=== PATIENT | female | born 1950 | race Caucasian/White ===

== ENCOUNTER 2017-10-27 11:00 | Inpatient (IN) | payer MEDICARE ==
[2017-10-27 12:02] VITALS: BMI 28.7
[2017-11-04] MEDS ORDERED: Sodium Chloride 0.9% 10 ML ONE (06:24)
[2017-11-04] MEDS ORDERED: Thrombin 5000 UNITS/5 ML VIAL ONE (06:24)
[2017-11-04] MEDS ORDERED: Midazolam HCl 2 mg/2 ml Vial ONE ×2 (07:07→09:57)
[2017-11-04] MEDS ORDERED: Fentanyl 100 MCG/2 ML VIAL ONE ×5 (07:07→11:07)
[2017-11-04] MEDS ORDERED: Phenylephrine HCL 10 MG/ML VIAL ONE (07:07)
[2017-11-04] MEDS ORDERED: Famotidine/PF 20 mg/2ml Vial ONE (07:07)
[2017-11-04] MEDS ORDERED: Promethazine HCl 25 MG/ML VIAL SLOW IVP PRN ×2 (09:36)
[2017-11-04] MEDS ORDERED: HYDROmorphone 2 MG/ML VIAL SLOW IVP PRN ×2 (09:36)
[2017-11-04] MEDS ORDERED: Promethazine HCl 25 MG/ML VIAL IM PRN ×3 (09:36→10:15)
[2017-11-04] MEDS ORDERED: Morphine Sulfate 2 MG/ML SYRINGE SLOW IVP PRN ×2 (09:36)
[2017-11-04] MEDS ORDERED: Meperidine HCl/PF 25 MG/ML VIAL SLOW IVP PRN ×2 (09:36)
[2017-11-04] MEDS ORDERED: Ondansetron HCl/PF 4 MG/2 ML Vial IVP PRN ×2 (09:36)
[2017-11-04] MEDS ORDERED: Bisacodyl 10 MG SUPP PR PRN (10:15)
[2017-11-04] MEDS ORDERED: Fleet Enema 133 ML BOT PR PRN (10:15)
[2017-11-04] MEDS ORDERED: traMADol HCl 50 MG TAB PO PRN (10:15)
[2017-11-04] MEDS ORDERED: Acetaminophen 325 MG TAB PO PRN (10:15)
[2017-11-04] MEDS ORDERED: Mag-Al 1200 mg/1200 mg/30 ML UDCUP PO PRN (10:15)
[2017-11-04] MEDS ORDERED: Milk Of Magnesia 30 ML UDCUP PO PRN (10:15)
[2017-11-04] MEDS ORDERED: Acetaminophen/Codeine 30-300mg Tablet PO PRN (10:15)
[2017-11-04] MEDS ORDERED: PROVENTIL INHALER 6.7 G (200 INHALATIONS) INH PRN (10:20)
[2017-11-04] MEDS ORDERED: Loratadine 10 MG TAB PO PRN (10:20)
[2017-11-04] MEDS ORDERED: Nitroglycerin 0.4 MG TAB (25 Tab Bottle) SL PRN (10:30)
[2017-11-04] MEDS ORDERED: Polyethylene Glycol 3350 17 GM Packet PO SCH (10:30)
[2017-11-04] MEDS: tiZANidine HCl 4 MG TAB PO PRN ×2 (12:48→19:28)
[2017-11-04] MEDS: Morphine 4 MG/ML VIAL SLOW IVP PRN ×2 (12:59→21:59)
--- NOTE | 2017-11-04 13:07 | OP ---
OR: 11 WOUND TYPE: Type 1 wound SURGEON: Yovanny Escobedo M.D. BUSINESS ACCOUNT SPECIALIST: Bart Otoole PA-C. 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 PROCEDURES PERFORMED: 1. C4-C5, C5-C6, C6-C7 anterior cervical diskectomies and decompression of the spinal cord and nerve roots. 2. Placement of interbody spacers for arthrodesis, packed with local bone autograft and allograft, C 4-C5, C5-C6, C6-C7 for arthrodesis. 3. Use of operative microscope for microdissection. 4. Anterior cervical plate and screw fixation at C4, C5, C6, and C7. DESCRIPTION OF PROCEDURE: After informed consent was obtained from the patient, the patient brought to OR 11. Proper patient pause and identification was carried out. He was placed under excellent ge neral endotracheal anesthesia and positioned supine on the operating room table. All appropriate poi nts were padded. We identified a right anterior oblique martin that allow for approach C4, C5, C6, and C7 segments. This region was sterilely cleansed, prepared, and draped. Proper patient pause and id entification was carried out. The wound was then opened with a combination of sharp, monopolar and b noelle dissection, and the longus colli muscles and prevertebral space were exposed along with the C4, C5, C6, C7 segments. This region was sterilely cleansed, prepared, and draped. Localization film wa s then carried out and retractors were brought in the field. The microscope was also brought in the field and distraction at C4-C5 then occurred. A diskectomy was performed at C4-C5 using the operativ e microscope for microdissection with satisfactory decompression of spinal cord and nerve roots. End plates were prepared and interbody spacer. Appropriate dimension was placed with local bone autograf t and allograft, C5-C6 distraction then occurred and diskectomy was performed at that level as well w ith decompression of spinal cord and nerve roots. An interbody spacer packed at that region as well. We then turned our attention to the C6-C7 segment and distraction at that segment occurred and disk ectomy performed there for decompression of spinal cord and nerve roots. Again, the endplates were p repared. An interbody spacer of appropriate dimension was placed at C6-C7 with satisfied decompressi on C4-C5, C5-C6, C6-C7 in our construct. The microscope was removed and plate was secured to the spi ne with screws placed and final tightening occurred, satisfied with both gross and fluoroscopic visua lization. Copious irrigation occurred. Hemostasis was maximized throughout. The wound was then daina sed in anatomic layers over a drain. The patient then emerged from anesthesia.
[2017-11-04] MEDS: Baclofen 10 MG TAB PO SCH ×4 (16:08→21:54)
[2017-11-04] MEDS: Sodium Chloride 0.9% 1,000 ML IV SCH ×2 (16:10→22:04)
[2017-11-04] MEDS: HYDROcodone/Acetaminophen 7.5/325 mg Tablet PO PRN ×2 (16:14→22:53)
[2017-11-04] MEDS ORDERED: PROPOFOL 200 MG/20 ML VIAL ONE (16:58)
[2017-11-04] MEDS ORDERED: Lidocaine 1% PF 5 ML VIAL ONE (16:58)
[2017-11-04] MEDS ORDERED: Glycopyrrolate 0.2 MG/ML 5 ML SYRINGE ONE (16:58)
[2017-11-04] MEDS ORDERED: PHENYLEPHRINE-NS 100 MCG/ML 10 ML SYRINGE ONE (16:58)
[2017-11-04] MEDS ORDERED: Dexamethasone 20 MG/5 ML VIAL ONE ×2 (16:58)
[2017-11-04] MEDS ORDERED: NPH, Human Insulin Isophane 300 UNIT/3 ML VIAL SC SCH (21:00)
[2017-11-04] MEDS: Carvedilol 6.25 MG TAB PO SCH (21:54)
[2017-11-04] MEDS: INSULIN LISPRO SQ SCH ×4 (22:39→22:47)
[2017-11-04] MEDS ORDERED: Insulin Lispro [Humalog Kwikpen U-100] SC SCH (22:45)
[2017-11-04] MEDS ORDERED: HumaLOG 300 UNITS/3 ML VIAL SC SCH (23:00)
[2017-11-05] MEDS: HYDROcodone/Acetaminophen 7.5/325 mg Tablet PO PRN (04:21)
[2017-11-05] MEDS: tiZANidine HCl 4 MG TAB PO PRN (04:24)
[2017-11-05] MEDS ORDERED: Canagliflozin [Invokana] 300 MG PO SCH (07:30)
[2017-11-05] MEDS ORDERED: Vancomycin HCl 1 GM in Premix Bag 1 BAG IVPB SCH (08:00)
[2017-11-05 08:07] VITALS: BP 124/74; TEMP 98
[2017-11-05] MEDS: Carvedilol 6.25 MG TAB PO SCH (08:16)
[2017-11-05] MEDS: Baclofen 10 MG TAB PO SCH ×2 (08:17)
[2017-11-05] MEDS: Morphine 4 MG/ML VIAL SLOW IVP PRN (08:21)
[2017-11-05] MEDS ORDERED: NPH, Human Insulin Isophane 300 UNIT/3 ML VIAL SC SCH ×2 (09:00→21:00)
[2017-11-05] MEDS ORDERED: FLUoxetine HCl 20 MG CAP PO SCH (09:00)
[2017-11-05] MEDS: HumaLOG 300 UNITS/3 ML VIAL SC PRN ×2 (09:15→10:39)
--- NOTE | 2017-11-05 19:38 | PRG ---
DATE OF SERVICE: 11/05/2017 Ms. Olea is postoperative day 1 multilevel anterior cervical diskectomy and fusion. She states sh e has no arm pain as expected surgical neck or interscapular pain. She is doing very well although w ith good strength. Her drain output has been 30 mL overnight. We will remove the drain. Her wound is healing well. Her strength is good. We will plan for dismissal later today. We have arranged fo r postoperative follow up.
== END 2017-11-05 11:00 | disposition home or self-care (01) | DRG 472 ==
LOC: SURG A 11-04 05:33 → SURG B 11-04 12:29
PROVIDERS: ADMIT Surgery; ATTEND Surgery
PROC: 0RG2070 Fusion of 2 or more Cervical Vertebral Joints with Autologous Tissue Substitute, Anterior Approach, Anterior Column, Open Approach (ICD-10-PCS; principal; 2017-11-04)
PROC: 00NW0ZZ Release Cervical Spinal Cord, Open Approach (ICD-10-PCS; 2017-11-04)
PROC: 0RB30ZZ Excision of Cervical Vertebral Disc, Open Approach (ICD-10-PCS; 2017-11-04)
PROC: 01N10ZZ Release Cervical Nerve, Open Approach (ICD-10-PCS; 2017-11-04)
DX: M48.02 Spinal stenosis, cervical region (principal); G95.9 Disease of spinal cord, unspecified; J44.9 Chronic obstructive pulmonary disease, unspecified; M54.12 Radiculopathy, cervical region; E11.9 Type 2 diabetes mellitus without complications; I10 Essential (primary) hypertension; Z88.0 Allergy status to penicillin; Z88.8 Allergy status to other drugs, medicaments and biological substances; Z79.4 Long term (current) use of insulin; Z79.899 Other long term (current) drug therapy
CPT/HCPCS: 36416; 76001; A4216; C1713; C1768; C1776; J0131; J1100; J1815; J2001; J2250; J2270; J2370; J2704; J3010; J3370; J3490; S0028

== ENCOUNTER 2017-10-27 11:16 | Outpatient (CLI) | payer MEDICARE ==
[2017-10-27 13:02] LABS: Hemoglobin 14.1 g/dL (12.0-16.0); Mean Corpuscular HGB CONC 33.2 g/dL (32.0-36.0); Mean Corpuscular Hemoglobin 31.7 pg (27.0-31.0); Mean Corpuscular Volume 95.6 fl (81.0-99.0); Mean Platelet Volume 8.1 fL (7.4-10.4); Platelet Count 265 thou/uL (130-400); RBC Distribution Width 11.9 % (11.5-14.5); Red Blood Cell (RBC) Count 4.44 mill/uL (4.20-5.40); White Blood Cell (WBC) Count 5.8 thou/uL (4.8-10.8)
[2017-10-27 13:14] LABS: PTT 32.5 SEC (22.9-36.1); Prothrombin Time 13.8 SEC (12.0-14.7)
[2017-10-27 13:15] LABS: Anion Gap 12 mmol/L (10-20); BUN (Urea Nitrogen) 20 mg/dL (9.8-20.1); Calc. Creatinine Clearance 0 mL/min (70-130); Calcium 9.3 mg/dL (7.8-10.44); Carbon Dioxide 27 mmol/L (23-31); Chloride 106 mmol/L (98-107); Estimated GFR-MDRD 45; Glucose 157 mg/dL (80-115); Potassium 4.5 mmol/L (3.5-5.1); Sodium 140 mmol/L (136-145)
--- NOTE | 2017-10-28 06:22 | EKG ---
Test Reason : Blood Pressure : / mmHG Vent. Rate : 065 BPM Atrial Rate : 065 BPM P-R Int : 140 ms QRS Dur : 068 ms QT Int : 430 ms P-R-T Axes : 061 -14 027 degrees QTc Int : 447 ms Normal sinus rhythm Normal ECG When compared with ECG of 23-APR-2011 02:23, Premature supraventricular complexes are no longer Present Vent. rate has decreased BY 35 BPM Confirmed by EUGENIO MENCHACA ([id number]) on 10/28/2017 5:56:06 AM Referred By: LOI Confirmed By:EUGENIO MENCHACA
== END 2017-10-27 11:17 | disposition home or self-care (01) ==
LOC: LABBT 11:16
PROVIDERS: ATTEND Surgery
DX: Z01.818 Encounter for other preprocedural examination (principal); M54.12 Radiculopathy, cervical region; M48.02 Spinal stenosis, cervical region
CPT/HCPCS: 80048; 85027; 85610; 85730; 87081; 93005; 93010

== ENCOUNTER 2017-12-22 09:22 | Outpatient (CLI) | payer MEDICARE ==
--- NOTE | 2017-12-22 11:40 | RAD ---
CERVICAL SPINE SERIES 3 VIEWS: Date: 12/22/17 HISTORY: Follow-up surgery. FINDINGS: Patient has undergone anterior cervical fusion with placement of plate and screws which extend from C 4 to C7. Markers of disc implants are within the confines of the disc levels. Disc narrowing is seen at C2-3 and C3-4. IMPRESSION: Postop changes of the spine. POS: VERNA
== END 2017-12-22 09:23 | disposition home or self-care (01) ==
LOC: TBSIIMAG 09:22
PROVIDERS: ATTEND Surgery
DX: M54.2 Cervicalgia (principal); Z98.890 Other specified postprocedural states
CPT/HCPCS: 72040

== ENCOUNTER 2018-11-27 13:37 | Emergency (ER) | payer MEDICARE ==
[2018-11-27 14:03] LABS: #Basophils 0.1 thou/uL (0.0-0.2); #Eosinphils 0.1 thou/uL (0.0-0.7); #Lymphocytes 1.7 thou/uL (1.20-3.40); #Monocytes 0.7 thou/uL (0.11-0.59); #Neutrophils 4.2 thou/uL (1.40-6.50); %Basophils 1.2 % (0.0-1.0); %Eosinophils 1.5 % (0.0-10.0); %Lymphocytes 25.3 % (21.0-51.0); %Monocytes 10.4 % (0.0-10.0); %Neutrophils 61.6 % (42.0-75.0); Hemoglobin 12.8 g/dL (12.0-16.0); Mean Corpuscular HGB CONC 34.2 g/dL (32.0-36.0); Mean Corpuscular Hemoglobin 32.6 pg (27.0-31.0); Mean Corpuscular Volume 95.2 fL (78.0-98.0); Mean Platelet Volume 8.1 fL (7.4-10.4); Platelet Count 258 thou/uL (130-400); RBC Distribution Width 12.2 % (11.5-14.5); Red Blood Cell (RBC) Count 3.94 mill/uL (4.20-5.40); White Blood Cell (WBC) Count 6.8 thou/uL (4.8-10.8)
[2018-11-27 14:07] LABS: Bilirubin Negative (Negative); Blood, Urine Negative (Negative); Clarity CLEAR (Clear); Glucose, Urine (Dipstick) >=1000 mg/dL (Negative); Leukocyte Trace (Negative); Nitrite Negative (Negative); Protein, Urine (Dipstick) Negative (Neg-Trace); Specific Gravity, Urine 1.029 (1.002-1.036); Urobilinogen 0.2 mg/dL (0.2-1.0)
[2018-11-27 14:09] LABS: Bacteria/HPF None Seen HPF (None Seen); Hyaline Casts/LPF 0-3 HYALINE CAST LPF (0-3 Hyaline); Pathc Cast-AUWi Flag 0.13 (0-2.49); RBC/HPF 0-3 HPF (0-3); WBC/HPF 21-50 HPF (0-3); Yeast-AUWi Flag 16.1 (0-25.0)
[2018-11-27 14:27] LABS: ALT (SGPT) 11 U/L (8-55); AST (SGOT) 11 U/L (5-34); Albumin 4.1 g/dL (3.4-4.8); Alkaline Phosphatase 88 U/L (40-150); Anion Gap 12 mmol/L (10-20); BUN (Urea Nitrogen) 15 mg/dL (9.8-20.1); Bilirubin, Total 0.4 mg/dL (0.2-1.2); Calc. Creatinine Clearance 0 mL/min (70-130); Calcium 9.4 mg/dL (7.8-10.44); Carbon Dioxide 25 mmol/L (23-31); Chloride 102 mmol/L (98-107); Estimated GFR-MDRD 44; Globulin 2.7 g/dL (2.4-3.5); Glucose 206 mg/dL (80-115); Lipase 11 U/L (8-78); Potassium 4.2 mmol/L (3.5-5.1); Protein, Total 6.8 g/dL (6.0-8.3); Sodium 135 mmol/L (136-145)
[2018-11-27] MEDS ORDERED: Ondansetron PF 4 MG/2 ML Vial ONE (14:42)
[2018-11-27] MEDS ORDERED: Morphine 4 MG/ML VIAL ONE (14:42)
--- NOTE | 2018-11-27 14:55 | CT ---
CT OF THE ABDOMEN AND PELVIS WITHOUT IV CONTRAST INDICATION: Lower abdominal pain COMPARISON: None FINDINGS: The lack of IV contrast limits evaluation of the solid organs of the abdomen and pelvis. ABDOMEN: Lung bases: Subsegmental volume loss. Moderate size hiatal hernia Liver: Mild pneumobilia Gallbladder: Not visualized, presumed to be surgically absent. Pancreas: Diffuse fatty atrophy Adrenal glands: Normal. Spleen: Normal. Kidneys: Normal. Retroperitoneum of the upper abdomen: There are moderate vascular calcifications seen involving the v isualized vasculature. No pathologically enlarged lymph nodes are evident. Additional findings: None. Pelvis: Small and large bowel: Normal Bladder: Normal. Rectal and perirectal soft tissues:Normal. Reproductive structures: Surgically absent Free fluid in pelvis: No free fluid is evident. Lymphadenopathy pelvis: No lymphadenopathy is evident. Osseous structures: There is scattered degenerative and osteoarthritic change present. There is posts urgical change involving the lower lumbar spine. No acute fracture or subluxation demonstrated. IMPRESSION: 1. No acute abnormality.
== END 2018-11-27 15:36 | disposition home or self-care (01) ==
LOC: ERS 13:37
DX: N12 Tubulo-interstitial nephritis, not specified as acute or chronic (principal); E11.9 Type 2 diabetes mellitus without complications; I10 Essential (primary) hypertension; F32.9 Major depressive disorder, single episode, unspecified; F41.9 Anxiety disorder, unspecified; J45.909 Unspecified asthma, uncomplicated; K86.1 Other chronic pancreatitis; Z79.4 Long term (current) use of insulin; Z79.899 Other long term (current) drug therapy
CPT/HCPCS: 36415; 74176; 80053; 81003; 81015; 83690; 85025; 87086; 93005; 94760; 96374; 96375; J2270; J2405

== ENCOUNTER 2019-04-19 10:30 | Outpatient (CLI) | payer MEDICARE ==
--- NOTE | 2019-04-19 13:20 | RAD ---
CERVICAL SPINE RADIOGRAPHS EIGHT VIEWS: 04/19/2019 PROVIDED CLINICAL HISTORY: Radiculopathy. COMPARISON: 12/22/2017 FINDINGS: Postoperative changes of ACDF involving C4 through C7 are redemonstrated. No evidence for hardware lo osening or migration. Cervical alignment appears normal. There is no evidence for abnormal translatio nal motion with flexion and extension. No gross bony foraminal narrowing is evident. The odontoid vie w is suboptimal. Given this limitation there is no evidence for fracture. Disk degenerative changes a re seen at C3-C4. No prevertebral soft tissue swelling apparent. The visualized lung apices appear cl ear. IMPRESSION: Postoperative and degenerative change involving the cervical spine, as described. POS: TPC
--- NOTE | 2019-04-19 14:08 | MRI ---
MRI CERVICAL SPINE WITHOUT CONTRAST: INDICATIONS: Cervical radiculopathy. Post cervical spine surgery. COMPARISON: MRI cervical spine from 2015. FINDINGS: Postoperative changes have occurred since the prior exam. Motion artifact degrades all sequences. Anterior plate and screws noted transfixing the C4, C5, C6 and C7 levels. Interbody implants at these levels. Vertebral bodies maintain height and alignment. Vertebral body signal is maintained. C2-C3: Asymmetric spondylosis on the right and dense anterior thecal sac on the right mildly encroach ing into the right foramina. C3-C4: Mild disk bulge and spondylosis efface the anterior subarachnoid space, slightly more pronounc ed paracentrally to the right. Mild right foraminal encroachment due to uncinate hypertrophy and spon dylosis. No cord impingement. C4-C5: Posterior spondylosis effaces the anterior subarachnoid space and abuts the anterior cord. Jonny ateral foraminal stenosis due to hypertrophic change. C5-C6: Mild posterior spondylosis without cord impingement. Bilateral foraminal stenosis due to hypertrophic change. C6-C7: Asymmetric spondylitic change is seen centrally and to the right, abutting the anterior cord. Bilateral foraminal narrowing. C7: No evidence of significant spondylosis. Anterior subarachnoid space is preserved. Cord signal appears normal, although T2 sequences are severely degraded due to artifact. IMPRESSION: Postoperative changes with anterior fusion changes from C4 through C7. Spondylytic changes impinge on the cord at C4-C5 and C6-C7. CT may be of benefit, which will reduce motion artifact and better defi ne the osseous changes. POS: OFF
== END 2019-04-19 10:31 | disposition home or self-care (01) ==
LOC: SCSMRI 10:30
PROVIDERS: ATTEND Anesthesiology Pain Medicine
DX: M47.22 Other spondylosis with radiculopathy, cervical region (principal); Z98.890 Other specified postprocedural states; Z98.1 Arthrodesis status
CPT/HCPCS: 72052; 72141

== ENCOUNTER 2019-05-11 08:29 | Outpatient (CLI) | payer MEDICARE ==
--- NOTE | 2019-05-11 12:57 | NM ---
NUCLEAR MEDICINE BRAIN IMAGING: HISTORY: Tremor, unspecified TECHNIQUE: A Betsy scan with axial tomographic images of the brain was obtained 3 hours following the intravenous administration of 5mCi I-123 Ioflupane. The patient was not pretreated with 130 mg of oral potassium iodide 1 hour prior to the injection due to iodine allergy. FINDINGS: There is normal symmetric uptake in the striata bilaterally, demonstrating symmetric, crescent-shaped focal regions of activity mirrored about the median plane. IMPRESSION: Normal exam.
== END 2019-05-11 08:30 | disposition home or self-care (01) ==
LOC: NM 08:29
PROVIDERS: ATTEND Nurse Practitioner Acute Care
DX: R25.1 Tremor, unspecified (principal)
CPT/HCPCS: 78607; A9584

== ENCOUNTER 2019-05-15 09:21 | Emergency (ER) | payer MEDICARE ==
[2019-05-15] MEDS ORDERED: Morphine 4 MG/ML VIAL ONE (10:05)
[2019-05-15] MEDS ORDERED: Ketorolac Tromethamine 30 MG/ML VIAL ONE (10:05)
--- NOTE | 2019-05-15 10:53 | RAD ---
3 views right wrist: 05/15/2019 COMPARISON: None HISTORY: Fall, trauma, pain FINDINGS: No fracture or dislocation. No radiopaque foreign body or subcutaneous gas. If symptoms per sist, follow-up imaging in 7-10 days with dedicated scaphoid views are advised. IMPRESSION: No acute findings.
--- NOTE | 2019-05-15 10:54 | RAD ---
Frontal and lateral imaging of the right forearm: 05/15/2019 COMPARISON: None HISTORY: Fall, trauma, pain FINDINGS: No fracture or dislocation. No radiopaque foreign body or subcutaneous gas. IMPRESSION: No acute findings.
--- NOTE | 2019-05-15 10:55 | RAD ---
Right elbow 4 views: 05/15/2019 COMPARISON: None HISTORY: Fall, trauma, pain FINDINGS: No fracture or dislocation. No radiopaque foreign body or subcutaneous gas. No elbow joint effusion is appreciated on the lateral examination. IMPRESSION: No acute findings.
--- NOTE | 2019-05-15 10:58 | RAD ---
Exam:2 views right humerus HISTORY: Fall. Pain. Trauma. COMPARISON: None FINDINGS: Comminuted proximal humerus fracture with intra-articular extension. No additional fracture s. IMPRESSION: Proximal humerus fracture.
--- NOTE | 2019-05-15 10:58 | RAD ---
Exam:Right shoulder 3 view HISTORY: Trauma. Fall. Pain COMPARISON: None FINDINGS: Limited proximal humerus fracture. There may be intra-articular extension. Visualized ribs are unremarkable. Cervical fusion hardware is noted. IMPRESSION: Comminuted proximal humerus fracture with intra-articular extension.
== END 2019-05-15 12:10 | disposition home or self-care (01) ==
LOC: ERS 09:21
DX: S42.201A Unspecified fracture of upper end of right humerus, initial encounter for closed fracture (principal); I10 Essential (primary) hypertension; E11.9 Type 2 diabetes mellitus without complications; J45.909 Unspecified asthma, uncomplicated; F41.9 Anxiety disorder, unspecified; F32.9 Major depressive disorder, single episode, unspecified; Z79.899 Other long term (current) drug therapy; Z79.4 Long term (current) use of insulin; Z79.51 Long term (current) use of inhaled steroids; Z79.2 Long term (current) use of antibiotics; W18.30XA Fall on same level, unspecified, initial encounter
CPT/HCPCS: 96372; J1885; J2270

== ENCOUNTER 2019-05-16 12:21 | Observation (INO) | payer MEDICARE ==
[2019-05-16] MEDS ORDERED: Fentanyl 100 MCG/2 ML VIAL ONE ×2 (13:28→15:14)
[2019-05-16] MEDS ORDERED: Midazolam HCl 2 mg/2 ml Vial ONE (13:28)
[2019-05-16 13:38] LABS: #Basophils 0.1 thou/uL (0.0-0.2); #Eosinphils 0.1 thou/uL (0.0-0.7); #Lymphocytes 1.1 thou/uL (1.20-3.40); #Monocytes 0.9 thou/uL (0.11-0.59); #Neutrophils 4.2 thou/uL (1.40-6.50); %Basophils 1.3 % (0.0-1.0); %Eosinophils 1.4 % (0.0-10.0); %Lymphocytes 17.5 % (21.0-51.0); %Monocytes 13.7 % (0.0-10.0); %Neutrophils 66.2 % (42.0-75.0); Hemoglobin 10.8 g/dL (12.0-16.0); Mean Corpuscular HGB CONC 33.4 g/dL (32.0-36.0); Mean Corpuscular Hemoglobin 32.5 pg (27.0-31.0); Mean Corpuscular Volume 97.3 fL (78.0-98.0); Mean Platelet Volume 8.7 fL (7.4-10.4); Platelet Count 233 thou/uL (130-400); RBC Distribution Width 12.4 % (11.5-14.5); Red Blood Cell (RBC) Count 3.32 mill/uL (4.20-5.40); White Blood Cell (WBC) Count 6.4 thou/uL (4.8-10.8)
[2019-05-16] MEDS ORDERED: Clindamycin/D5W 900 mg/50 ml Premix Bag ONE (13:54)
[2019-05-16 14:14] LABS: Anion Gap 11 mmol/L (10-20); BUN (Urea Nitrogen) 18 mg/dL (9.8-20.1); Calc. Creatinine Clearance 0 mL/min (70-130); Calcium 9.1 mg/dL (7.8-10.44); Carbon Dioxide 28 mmol/L (23-31); Chloride 105 mmol/L (98-107); Estimated GFR-MDRD 42; Glucose 128 mg/dL (83-110); Potassium 3.8 mmol/L (3.5-5.1); Sodium 140 mmol/L (136-145)
[2019-05-16] MEDS ORDERED: Loratadine 10 MG TAB PO PRN (15:50)
[2019-05-16] MEDS ORDERED: [UNRECOGNIZED DRUG - OTHER] EA EYE PRN (15:50)
[2019-05-16] MEDS ORDERED: traMADol HCl 50 MG TAB PO PRN (15:59)
[2019-05-16] MEDS ORDERED: HYDROcodone/Acetaminophen 5/325 mg Tablet PO PRN (15:59)
[2019-05-16] MEDS ORDERED: Fentanyl 100 MCG/2 ML VIAL SLOW IVP PRN (15:59)
[2019-05-16] MEDS ORDERED: Ondansetron PF 4 MG/2 ML Vial IV PRN (15:59)
[2019-05-16] MEDS ORDERED: Communication Order-Pharmacy FS SCH (16:00)
[2019-05-16] MEDS ORDERED: Nitroglycerin 0.4 MG TAB (25 Tab Bottle) SL SCH (16:00)
[2019-05-16] MEDS ORDERED: Polyethylene Glycol 3350 17 GM Packet PO SCH (16:00)
[2019-05-16] MEDS ORDERED: Promethazine HCl 25 MG/ML VIAL IM PRN (17:50)
[2019-05-16] MEDS ORDERED: Promethazine HCl 25 MG/ML VIAL SLOW IVP PRN (17:50)
[2019-05-16] MEDS ORDERED: Morphine Sulfate 2 MG/ML SYRINGE SLOW IVP PRN (17:50)
[2019-05-16] MEDS ORDERED: Ondansetron HCl/PF 4 MG/2 ML Vial IVP PRN (17:50)
[2019-05-16] MEDS ORDERED: HYDROmorphone 2 MG/ML VIAL SLOW IVP PRN (17:50)
[2019-05-16] MEDS ORDERED: PACU-Morphine 4MG/ML VIAL SLOW IVP PRN (17:50)
[2019-05-16] MEDS ORDERED: Bupivacaine HCl 0.5%/Epinephrine 1:200,000/PF 30 ml Vial ONE (19:15)
--- NOTE | 2019-05-16 19:15 | RAD ---
Right humerus 2 views intraoperative fluoroscopy HISTORY: Fracture. FINDINGS: Intraoperative fluoroscopy was provided for internal fixation is performed by Dr. Vargas . Spot fluoroscopic images show compression plate and multiple screws transfixing the humeral neck, in anatomic alignment. Fluoroscopy time 18 seconds.
[2019-05-16] MEDS ORDERED: Lidocaine 1% PF 5 ML VIAL ONE (20:30)
[2019-05-16] MEDS ORDERED: Rocuronium Bromide 10 MG/ML (10ML VIAL) ONE (20:30)
[2019-05-16] MEDS ORDERED: Ondansetron PF 4 MG/2 ML Vial ONE (20:30)
[2019-05-16] MEDS ORDERED: Dexamethasone 20 MG/5 ML VIAL ONE (20:30)
[2019-05-16] MEDS ORDERED: PROPOFOL 200 MG/20 ML VIAL ONE (20:30)
[2019-05-16] MEDS ORDERED: Glycopyrrolate 0.2 MG/ML 5 ML SYRINGE ONE (20:30)
[2019-05-16] MEDS ORDERED: ePHEDrine 50 MG/ML VIAL ONE (20:30)
--- NOTE | 2019-05-16 21:44 | OP ---
DATE OF PROCEDURE: 05/16/2019 OPERATION: Open reduction and internal fixation of right proximal humerus fracture. PREOPERATIVE DIAGNOSIS: Displaced and comminuted right proximal humerus fracture. POSTOPERATIVE DIAGNOSES: Displaced and comminuted right proximal humerus fracture. COMPLICATIONS: None. ESTIMATED BLOOD LOSS: 100 mL. HOSPICE NURSE: Disha Romero PA-C. IMPLANTS: Synthes proximal humeral plate with multiple locking and nonlocking screws. INDICATIONS: Ms. Olea is a 69-year-old female who has fallen and fractured her proximal humerus. She was indicated for open reduction and internal fixation to restore anatomic alignment and promote healing. Risks have been reviewed in detail. Risks to include, nonunion, malunion, hardware failure, need for further surgery, chronic pain, and others. DESCRIPTION OF PROCEDURE: Ms. Olea was identified in the preoperative holding area. Her correct extremity was marked. She was carried to the operating room. She was positioned in a gentle beach chair. We performed prepping and draping of the right upper extremity. At this point, we performed a deltopectoral approach to the proximal humerus. We dissected down through the subcutaneous tissues to the fascia. The deltopectoral fascia was opened. We developed the deltopectoral interval. We then identified the deeper tissues. We cleared some bursal and hematoma tissue. We exposed the underlying fracture of the proximal humerus. At this point, we cleared the bony edges. We then placed sutures in the posterior aspect of the tuberosity. We were able to reduce the tuberosity back to the lesser tuberosity. We sutured this together. We then reduced the humeral head using intraoperative x-ray and K-wire fixation. We then placed a proximal humeral plate along the lateral cortex. We placed K-wires through this as well. We then placed a distal screw followed by multiple proximal screws. All the proximal screws were locking screws. We took x-ray images confirming placement. There were no complications. We filled all remaining screw holes distally. We then thoroughly irrigated with copious lavage. At this point, we closed appropriately in layers. The patient was then taken to the recovery room in good condition without complication. Job ID: [id number]
[2019-05-16] MEDS: Ketorolac Tromethamine 30 MG/ML VIAL IVP SCH ×2 (22:20→23:10)
[2019-05-16] MEDS: Carvedilol 6.25 MG TAB PO SCH (22:33)
[2019-05-16] MEDS: Baclofen 10 MG TAB PO SCH (22:33)
[2019-05-16] MEDS: Morphine ER 30 MG TAB PO SCH (22:33)
[2019-05-16 23:42] VITALS: BMI 29.0
[2019-05-17] MEDS ORDERED: Vancomycin HCl 1 GM in Premix Bag 1 BAG IVPB SCH (03:00)
[2019-05-17 05:16] LABS: #Lymphocytes 0.4 thou/uL (1.20-3.40); #Monocytes 0.8 thou/uL (0.11-0.59); #Neutrophils 6.4 thou/uL (1.40-6.50); %Basophils 0.3 % (0.0-1.0); %Lymphocytes 5.6 % (21.0-51.0); %Monocytes 10.1 % (0.0-10.0); %Neutrophils 83.9 % (42.0-75.0); Hemoglobin 9.1 g/dL (12.0-16.0); Mean Corpuscular HGB CONC 33.8 g/dL (32.0-36.0); Mean Corpuscular Hemoglobin 32.9 pg (27.0-31.0); Mean Corpuscular Volume 97.3 fL (78.0-98.0); Mean Platelet Volume 8.2 fL (7.4-10.4); Platelet Count 192 thou/uL (130-400); RBC Distribution Width 12.2 % (11.5-14.5); Red Blood Cell (RBC) Count 2.77 mill/uL (4.20-5.40); White Blood Cell (WBC) Count 7.6 thou/uL (4.8-10.8)
[2019-05-17] MEDS: Ketorolac Tromethamine 30 MG/ML VIAL IVP SCH (05:33)
[2019-05-17] MEDS ORDERED: PROVENTIL INHALER 6.7 G (200 INHALATIONS) INH SCH (07:00)
[2019-05-17] MEDS ORDERED: Non-Formulary Item 1 EACH (Canagliflozin [Invokana] 300 MG) PO SCH (09:00)
[2019-05-17] MEDS ORDERED: FLUoxetine HCl 20 MG CAP PO SCH (09:00)
[2019-05-17] MEDS: Morphine ER 30 MG TAB PO SCH (09:25)
[2019-05-17] MEDS: Carvedilol 6.25 MG TAB PO SCH ×3 (09:26→09:33)
[2019-05-17] MEDS: Baclofen 10 MG TAB PO SCH (09:26)
[2019-05-17] MEDS ORDERED: Dextrose 50% Abboject 50 ML SYRINGE SLOW IVP PRN (10:39)
[2019-05-17] MEDS ORDERED: Dextrose 5% in Water 1,000 ML IV PRN (10:39)
[2019-05-17] MEDS ORDERED: HumaLOG 300 UNITS/3 ML VIAL SC PRN ×2 (10:39)
[2019-05-17 11:59] VITALS: BP 111/58; TEMP 98.3
--- NOTE | 2019-05-18 12:50 | DIS ---
DATE OF ADMISSION: 05/16/2019 DATE OF DISCHARGE: 05/17/2019 This is Disha Romero PA-C dictating a report for Ned Vargas MD. REASON FOR ADMISSION: Right proximal humerus fracture. PREOPERATIVE DIAGNOSIS: Displaced and comminuted right proximal humerus fracture. POSTOPERATIVE DIAGNOSIS: Displaced and comminuted right proximal humerus fracture. PROCEDURE PERFORMED: Open reduction and internal fixation of right proximal humerus fracture. BRIEF HOSPITAL COURSE: Ms. Olea is a 69-year-old female who fell and fractured her proximal humerus. She presented to our clinic earlier in the day of admission and proceeded to the hospital for surgery. She was indicated for this procedure in order to restore anatomic alignment and promote healing. She did well in the surgical suite and postoperatively she was admitted to [place] [id number] surgical floor, where she worked with Occupational Therapy, received postoperative antibiotics and analgesics. Postoperative day one, she was feeling well and no complications were incurred and she was discharged home with family. DISCHARGE DISPOSITION: Home. DISCHARGE CONDITION: Stable. DISCHARGE INSTRUCTIONS: The patient will keep her surgical wound clean, dry, and intact until followup in our office. She will stay in a sling while she is out of bed. DISCHARGE MEDICATIONS: See MAR. Job ID: [id number]
== END 2019-05-17 11:55 | disposition home or self-care (01) ==
LOC: SDC 12:21 → SURG A 15:59
PROVIDERS: ADMIT Orthopaedic Surgery; ATTEND Orthopaedic Surgery
PROC: 0PSC04Z Reposition Right Humeral Head with Internal Fixation Device, Open Approach (ICD-10-PCS; principal; 2019-05-16)
PROC: 3E0T3BZ Introduction of Anesthetic Agent into Peripheral Nerves and Plexi, Percutaneous Approach (ICD-10-PCS; 2019-05-16)
DX: S42.201A Unspecified fracture of upper end of right humerus, initial encounter for closed fracture (principal); G89.18 Other acute postprocedural pain; Z79.2 Long term (current) use of antibiotics; Z79.4 Long term (current) use of insulin; Z79.891 Long term (current) use of opiate analgesic; Z79.899 Other long term (current) drug therapy; Z88.0 Allergy status to penicillin; Z88.1 Allergy status to other antibiotic agents; Z88.8 Allergy status to other drugs, medicaments and biological substances; Z91.041 Radiographic dye allergy status; Z91.048 Other nonmedicinal substance allergy status; W19.XXXA Unspecified fall, initial encounter
CPT/HCPCS: 23615; 64415; 73060; 76000; 80048; 82962; 85025 ×2; 94640; 96365; 96366; 96375; 96376; C1713 ×3; G0378 ×2; 36415; 36416; J0670; J1100; J1885; J2001; J2250; J2405; J2704; J3010; J3370; J3490

== ENCOUNTER 2019-12-28 09:06 | Outpatient (CLI) | payer MEDICARE ==
--- NOTE | 2019-12-28 09:25 | RAD ---
THREE VIEWS CERVICAL SPINE: COMPARISON: 12/22/2017. FINDINGS: On the AP projection, redemonstration of a cervical fusion plate from C4 through C7. No perihardware lucency. Plate position is unchanged. Disc prosthesis at C4-C5, C5-C6 and C6-C7. On the AP projection facet arthropathy is identified. There is no prevertebral soft tissue swelling. Predental space is normal. No fracture. IMPRESSION: Stable and uncomplicated cervical fusion. Transcribed Date/Time: 12/28/2019 10:44 AM
== END 2019-12-28 09:07 | disposition home or self-care (01) ==
LOC: BICRAD 09:06
PROVIDERS: ATTEND Surgery
DX: M54.2 Cervicalgia (principal); Z98.1 Arthrodesis status
CPT/HCPCS: 72040

== ENCOUNTER 2021-01-18 09:48 | Emergency (ER) | payer OTHER, MEDICARE ==
[2021-01-18] MEDS ORDERED: Ketorolac Tromethamine 30 MG/ML VIAL ONE (10:56)
== END 2021-01-18 12:36 | disposition home or self-care (01) ==
LOC: ERS 09:48
DX: S52.615A Nondisplaced fracture of left ulna styloid process, initial encounter for closed fracture (principal); S52.572A Other intraarticular fracture of lower end of left radius, initial encounter for closed fracture; E11.9 Type 2 diabetes mellitus without complications; K86.1 Other chronic pancreatitis; J45.909 Unspecified asthma, uncomplicated; I10 Essential (primary) hypertension; Z79.4 Long term (current) use of insulin; Z79.899 Other long term (current) drug therapy; W01.0XXA Fall on same level from slipping, tripping and stumbling without subsequent striking against object, initial encounter
CPT/HCPCS: 29125; 96372; J1885

== ENCOUNTER 2021-04-08 07:12 | Outpatient (CLI) | payer MEDICARE | END 2021-04-08 07:13 | disposition home or self-care (01) | LOC: BICMRI 07:12 | PROVIDERS: ATTEND Anesthesiology Pain Medicine | DX: M54.12 Radiculopathy, cervical region (principal); M48.02 Spinal stenosis, cervical region; Z98.1 Arthrodesis status | CPT/HCPCS: 72141 ==

== ENCOUNTER 2021-06-06 08:42 | Outpatient (CLI) | payer MEDICARE ==
[2021-06-06 09:54] LABS: #Monocytes 0.6 10x3/uL (0.0-1.1); #Neutrophils 8.6 10x3/uL (1.5-8.4); %Basophils 0.1 % (0.0-2.0); %Lymphocytes 6.2 % (18.0-47.0); %Monocytes 5.6 % (0.0-10.0); %Neutrophils 87.7 % (40.0-75.0); Hemoglobin 12.1 g/dL (12.0-15.5); Mean Corpuscular HGB CONC 32.7 g/dL (32.0-36.0); Mean Corpuscular Hemoglobin 31.1 pg (27.0-33.0); Mean Corpuscular Volume 95.1 fl (81.6-98.3); Mean Platelet Volume 10.9 fl (7.4-10.4); Platelet Count 265 10x3/uL (150-450); RBC Distribution Width 12.5 % (11.5-14.5); Red Blood Cell (RBC) Count 3.89 10x6/uL (3.90-5.03); White Blood Cell (WBC) Count 9.8 10x3/uL (3.5-10.5)
[2021-06-06 17:43] LABS: SARS-CoV-2 PCR by NAA Not Detected (NotDetected)
== END 2021-06-06 08:43 | disposition home or self-care (01) ==
LOC: LABBT 08:42
PROVIDERS: ATTEND Orthopaedic Surgery Hand Surgery
DX: Z01.818 Encounter for other preprocedural examination (principal); G56.02 Carpal tunnel syndrome, left upper limb; Z20.822 Contact with and (suspected) exposure to COVID-19
CPT/HCPCS: 85025; 93005; U0003; U0005; 93010

== ENCOUNTER 2021-06-10 13:05 | Day surgery (SDC) | payer MEDICARE ==
[2021-06-09 10:43] VITALS: BMI 29.0
[2021-06-10] MEDS ORDERED: Vancomycin HCl 1.5 GM in Sodium Chloride 0.9% 250 ML 300 ML IVPB SCH (14:15)
[2021-06-10 14:47] LABS: Anion Gap 11 mmol/L (10-20); BUN (Urea Nitrogen) 20 mg/dL (9.8-20.1); Calc. Creatinine Clearance 54 mL/min (70-130); Calcium 9.2 mg/dL (7.8-10.44); Carbon Dioxide 29 mmol/L (23-31); Chloride 102 mmol/L (98-107); Glucose 101 mg/dL (83-110); Potassium 5.1 mmol/L (3.5-5.1); Sodium 137 mmol/L (136-145)
[2021-06-10] MEDS ORDERED: Bacitracin Zinc Ointment 30 gm TUBE ONE (15:53)
[2021-06-10] MEDS ORDERED: Bupivacaine PF 0.5% 30 ML VIAL ONE (15:53)
[2021-06-10] MEDS ORDERED: Betamet Acet/Betamet Na Ph 30 MG/5 ML VIAL ONE (15:54)
[2021-06-10] MEDS ORDERED: Fentanyl 100 MCG/2 ML VIAL ONE ×2 (15:59→16:14)
[2021-06-10] MEDS ORDERED: Midazolam HCl 2 mg/2 ml Vial ONE (16:05)
[2021-06-10] MEDS ORDERED: Ketamine 50 MG/ML (10ML VIAL) ONE (16:07)
[2021-06-10] MEDS ORDERED: Ondansetron PF 4 MG/2 ML Vial ONE (16:11)
[2021-06-10] MEDS ORDERED: PROPOFOL 200 MG/20 ML VIAL ONE (16:11)
[2021-06-10] MEDS ORDERED: Morphine 4 MG/ML VIAL ONE (16:14)
[2021-06-10] MEDS ORDERED: Ketorolac Tromethamine 30 MG/ML VIAL ONE (17:22)
== END 2021-06-10 18:45 | disposition home or self-care (01) ==
LOC: SDC 13:05
PROVIDERS: ATTEND Orthopaedic Surgery Hand Surgery
PROC: 01N50ZZ Release Median Nerve, Open Approach (ICD-10-PCS; principal; 2021-06-10)
DX: G56.02 Carpal tunnel syndrome, left upper limb (principal); M77.12 Lateral epicondylitis, left elbow; M65.842 Other synovitis and tenosynovitis, left hand; S52.592P Other fractures of lower end of left radius, subsequent encounter for closed fracture with malunion; M25.832 Other specified joint disorders, left wrist; G54.0 Brachial plexus disorders; I10 Essential (primary) hypertension; E11.9 Type 2 diabetes mellitus without complications; M81.0 Age-related osteoporosis without current pathological fracture; J45.909 Unspecified asthma, uncomplicated; K21.9 Gastro-esophageal reflux disease without esophagitis; Z79.4 Long term (current) use of insulin; Z79.899 Other long term (current) drug therapy; Z88.0 Allergy status to penicillin; Z88.1 Allergy status to other antibiotic agents; Z88.8 Allergy status to other drugs, medicaments and biological substances; Z91.041 Radiographic dye allergy status; Z91.048 Other nonmedicinal substance allergy status; Z98.1 Arthrodesis status
CPT/HCPCS: 36416; 80048; J0702; J1885; J2250; J2270; J2405; J2704; J3010; J3370; J7050; S0020

== ENCOUNTER 2021-07-05 14:57 | Emergency (ER) | payer MEDICARE | END 2021-07-05 17:06 | disposition home or self-care (01) | LOC: ERS 14:57 | DX: L03.114 Cellulitis of left upper limb (principal); I10 Essential (primary) hypertension; E11.9 Type 2 diabetes mellitus without complications; J45.909 Unspecified asthma, uncomplicated; G43.909 Migraine, unspecified, not intractable, without status migrainosus; Z79.4 Long term (current) use of insulin; Z79.899 Other long term (current) drug therapy | CPT/HCPCS: 99283 ==

== ENCOUNTER 2022-01-08 15:38 | Emergency (ER) | payer MEDICARE ==
[2022-01-08 16:32] LABS: #Basophils 0.1 thou/uL (0.0-0.2); #Eosinphils 0.1 thou/uL (0.0-0.7); #Lymphocytes 1.7 thou/uL (1.20-3.40); #Monocytes 0.6 thou/uL (0.11-0.59); #Neutrophils 3.3 thou/uL (1.40-6.50); %Basophils 1.6 % (0.0-1.0); %Eosinophils 1.9 % (0.0-10.0); %Lymphocytes 29.8 % (21.0-51.0); %Monocytes 9.8 % (0.0-10.0); Hemoglobin 13.7 g/dL (12.0-16.0); Mean Corpuscular HGB CONC 32.4 g/dL (32.0-36.0); Mean Corpuscular Hemoglobin 31.8 pg (27.0-31.0); Mean Corpuscular Volume 98.2 fL (78.0-98.0); Mean Platelet Volume 8.5 fL (7.4-10.4); Platelet Count 232 thou/uL (130-400); RBC Distribution Width 12.3 % (11.5-14.5); Red Blood Cell (RBC) Count 4.31 mill/uL (4.20-5.40); White Blood Cell (WBC) Count 5.9 thou/uL (4.8-10.8)
[2022-01-08 16:53] LABS: ALT (SGPT) 10 U/L (8-55); AST (SGOT) 13 U/L (5-34); Albumin 4.3 g/dL (3.4-4.8); Alkaline Phosphatase 74 U/L (40-110); Anion Gap 16 mmol/L (10-20); BUN (Urea Nitrogen) 17 mg/dL (9.8-20.1); Bilirubin, Total 0.4 mg/dL (0.2-1.2); Calc. Creatinine Clearance 0 mL/min (70-130); Calcium 9.8 mg/dL (7.8-10.44); Carbon Dioxide 24 mmol/L (23-31); Chloride 104 mmol/L (98-107); Globulin 2.8 g/dL (2.4-3.5); Glucose 203 mg/dL (83-110); Lipase 15 U/L (8-78); Potassium 4.8 mmol/L (3.5-5.1); Protein, Total 7.1 g/dL (5.8-8.1); Sodium 139 mmol/L (136-145)
[2022-01-08 17:38] LABS: Bilirubin Negative (Negative); Blood, Urine Negative (Negative); Clarity Clear (Clear); Glucose, Urine (Dipstick) Greater than 1000 mg/dL (Negative); Ketone, Urine Negative (Negative); Leukocyte 250 Leu/uL (Negative); Nitrite Negative (Negative); Protein, Urine (Dipstick) Negative (Neg-Trace); RBC/HPF 0-3 HPF (0-3); Specific Gravity, Urine 1.027 (1.002-1.036); Squamous Epithelial 0-3 HPF (0-3); Urobilinogen Normal mg/dL (Less than 2)
[2022-01-08 17:41] LABS: Bacteria/HPF 1+ HPF (None Seen)
[2022-01-08] MEDS ORDERED: Lorazepam 2 MG/ML VIAL ONE (17:51)
[2022-01-08] MEDS ORDERED: Ondansetron PF 4 MG/2 ML Vial ONE (18:44)
[2022-01-08] MEDS ORDERED: Morphine 4 MG/ML VIAL ONE (18:44)
== END 2022-01-08 20:45 | disposition home or self-care (01) ==
LOC: ERS 15:38
DX: K44.9 Diaphragmatic hernia without obstruction or gangrene (principal); N39.0 Urinary tract infection, site not specified; E11.40 Type 2 diabetes mellitus with diabetic neuropathy, unspecified; I10 Essential (primary) hypertension; J45.909 Unspecified asthma, uncomplicated
CPT/HCPCS: 36415; 71045; 74177; 80053; 81003; 81015; 83690; 84484; 85025; 93005; 96374; 96375; J2060; J2270; J2405

== ENCOUNTER 2024-02-15 08:07 | Outpatient (CLI) | payer MEDICARE | END 2024-02-15 08:08 | disposition home or self-care (01) | LOC: NM 08:07 | PROVIDERS: ATTEND Psychiatry & Neurology Neurology | DX: R25.1 Tremor, unspecified (principal) | CPT/HCPCS: 78803; A9584 ×2 ==

== ENCOUNTER 2025-05-08 15:43 | Emergency (ER) | payer MEDICARE ==
[2025-05-08 18:25] LABS: #Basophils 0.06 10x3/uL (0.0-0.2); #Eosinophils 0.04 10x3/uL (0.0-0.7); #Monocytes 0.62 10x3/uL (0.11-0.59); #Neutrophils 6.45 10x3/uL (1.40-6.50); %Basophils 0.8 % (0.0-1.0); %Eosinophils 0.5 % (0.0-10.0); %Lymphocytes 7.6 % (21.0-51.0); %Monocytes 7.9 % (0.0-10.0); %Neutrophils 82.7 % (42.0-75.0); Hematocrit 34.2 % (36.0-47.0); Hemoglobin 10.7 g/dL (12.0-16.0); Mean Corpuscular Hemoglobin 30.5 pg (27.0-31.0); Mean Corpuscular Volume 97.4 fL (78.0-98.0); Platelet Count 236 10x3/uL (130-400); Red Blood Cell (RBC) Count 3.51 mill/uL (4.20-5.40); White Blood Cell (WBC) Count 7.80 10x3/uL (4.8-10.8)
[2025-05-08 18:46] LABS: ALT (SGPT) 11 U/L (Less than 34); AST (SGOT) 20 U/L (11-34); Albumin 3.3 g/dL (3.1-4.5); Alkaline Phosphatase 91 U/L (40-110); Anion Gap 12 mmol/L (10-20); BUN (Urea Nitrogen) 15 mg/dL (9.8-20.1); Bilirubin, Total 0.3 mg/dL (0.3-1.2); Calc. Creatinine Clearance 0 mL/min (70-130); Calcium 8.9 mg/dL (7.8-10.44); Carbon Dioxide 30 mmol/L (23-31); Chloride 105 mmol/L (98-107); Globulin 3.0 g/dL (2.4-3.5); Glucose 143 mg/dL (83-110); Potassium 5.0 mmol/L (3.5-5.1); Sodium 142 mmol/L (136-145)
== END 2025-05-08 19:07 | disposition home or self-care (01) ==
LOC: ERS 15:43
DX: S00.03XA Contusion of scalp, initial encounter (principal); S40.022A Contusion of left upper arm, initial encounter; M54.50 Low back pain, unspecified; G89.29 Other chronic pain; R29.6 Repeated falls; I10 Essential (primary) hypertension; E11.9 Type 2 diabetes mellitus without complications; Z55.6 Problems related to health literacy; W19.XXXA Unspecified fall, initial encounter; Y92.009 Unspecified place in unspecified non-institutional (private) residence as the place of occurrence of the external cause
CPT/HCPCS: 36415; 70450; 72125; 72128; 72131; 80053; 85025; 93005